=== PATIENT | male | born 1940 | race Caucasian/White ===

== ENCOUNTER 2017-09-21 13:18 | Emergency (ER) | payer MEDICARE, OTHER ==
[~2017-09-21] VITALS: Ht 170.2 cm; Wt 110.0 kg
[~2017-09-21 13:18] MED LIST: CILOSTAZOL100 MG PO; CILOSTAZOL50 MG PO; CLOPIDOGREL75 MG PO; COLESTID1 GM PO; CRESTOR20 MG PO; CYCLOBENZAPR10 MG PO; FLEXERIL PO; LASIX 20 MG20 MG/TAB PO; LASIX 40 MG TAB40 MG PO; LOSARTAN POT50 MG PO; METOPROL TAR25 MG PO; NORTRIPTYLIN10 MG PO; NORTRIPTYLIN25 MG PO; OMEPRAZOLE20 MG PO; POT CHLORIDE10 ME1 PO; PROAIR HFA IN; TERAZOSIN1 MG PO; TRAMADOL HCL50 MG PO; ULTRAM50 M1 PO; ZITHROMAX250 MG PO
[2017-09-21 14:11] LABS: HEMATOCRIT 40.6 % (39.0-50.0); HEMOGLOBIN 12.8 g/dl (14.0-18.0); IMMATURE GRANULOCYTES 0.2 % (0.0-1.0); MEAN CELL VOLUME 85.3 fL CALC (80.0-100.0); MEAN CORPUSCULAR HGB 26.9 pG CALC (26.0-32.0); MEAN CORPUSCULAR HGB CONC 31.5 g/L CALC (32.0-36.0); NEUT# 4.99 thou/uL (1.82-7.42); RED BLOOD COUNT 4.76 mill/uL (4.70-6.10); RED CELL DISTRI WIDTH 14.9 % (11.5-15.5)
[2017-09-21 14:22] LABS: ALKALINE PHOSPHATASE 97 u/l (38-126); ANION GAP 16 (6-22 (CALC)); BILIRUBIN, TOTAL 0.4 mg/dL (0.0-1.4); BUN 19 mg/dL (8-23); BUN/CREATININE RATIO 19 (12-20 (CALC)); CALCIUM 9.1 mg/dL (8.4-10.2); CARBON DIOXIDE 22 mmol/l (22-30); CHLORIDE 109 mmol/l (95-108); GFR > 60 ML/MIN (>=60 (CALC)); GFR FOR AFR.AMER. > 60 ML/MIN (>=60 (CALC)); GLUCOSE 99 mg/dL (82-115); POTASSIUM 3.7 mmol/l (3.5-5.1); SGOT/AST 24 u/l (19-48); SGPT/ALT 34 u/l (11-66); SODIUM 144 mmol/l (137-146); TOTAL PROTEIN 6.5 g/dL (6.3-8.2)
[2017-09-21 14:34] LABS: MYOGLOBIN 66 ng/mL (0 - 121)
[2017-09-21 16:11] VITALS: BP 109/74
== END 2017-09-21 16:12 | disposition home or self-care (01) ==
LOC: ED 13:18
PROVIDERS: Emergency Medicine
DX: M54.12 Radiculopathy, cervical region (principal); F41.9 Anxiety disorder, unspecified; R42 Dizziness and giddiness; R53.1 Weakness

== ENCOUNTER 2017-10-19 08:26 | Day surgery (SDC) | payer MEDICARE, OTHER ==
[~2017-10-19] VITALS: Ht 170.2 cm; Wt 109.3 kg
[~2017-10-19 08:26] MED LIST changes: +AREDS 2 PO; +DOCU SOFT100 MG PO; +GABAPENTIN300 M2 PO; +LINZESS145 MCG PO; +LOSARTAN POT25 MG PO; +NITROGLYCER0.4 MG/H1 PO; +PHENTERMINE37.5 MG PO; +ROSUVASTATIN CA20 MG PO
[2017-10-19 09:57] LABS: HEMATOCRIT 40.3 % (39.0-50.0); HEMOGLOBIN 12.6 g/dl (14.0-18.0); IMMATURE GRANULOCYTES 0.3 % (0.0-1.0); MEAN CELL VOLUME 84.8 fL CALC (80.0-100.0); MEAN CORPUSCULAR HGB 26.5 pG CALC (26.0-32.0); MEAN CORPUSCULAR HGB CONC 31.3 g/L CALC (32.0-36.0); NEUT# 4.1 thou/uL (1.82-7.42); RED BLOOD COUNT 4.75 mill/uL (4.70-6.10); RED CELL DISTRI WIDTH 14.9 % (11.5-15.5)
[2017-10-19 10:29] LABS: ANION GAP 15 (6-22 (CALC)); BUN 10 mg/dL (8-23); BUN/CREATININE RATIO 12 (12-20 (CALC)); CARBON DIOXIDE 24 mmol/l (22-30); CHLORIDE 108 mmol/l (95-108); CREATININE 0.8 mg/dL (0.7-1.3); GFR > 60 ML/MIN (>=60 (CALC)); GFR FOR AFR.AMER. > 60 ML/MIN (>=60 (CALC)); POTASSIUM 4.3 mmol/l (3.5-5.1); SODIUM 144 mmol/l (137-146)
[2017-10-19 11:22] VITALS: BP 126/66
== END 2017-10-19 11:50 | disposition home or self-care (01) ==
LOC: ENDO 08:26 → ORM 12:15
PROVIDERS: Nurse Anesthetist, Certified Registered; ATTEND Internal Medicine Gastroenterology
PROC: 0D758ZZ Dilation of Esophagus, Via Natural or Artificial Opening Endoscopic (ICD-10-PCS; principal; 2017-10-19)
PROC: 0DB48ZX Excision of Esophagogastric Junction, Via Natural or Artificial Opening Endoscopic, Diagnostic (ICD-10-PCS; 2017-10-19)
PROC: 0DB78ZX Excision of Stomach, Pylorus, Via Natural or Artificial Opening Endoscopic, Diagnostic (ICD-10-PCS; 2017-10-19)
PROC: 0DB68ZX Excision of Stomach, Via Natural or Artificial Opening Endoscopic, Diagnostic (ICD-10-PCS; 2017-10-19)
DX: K22.2 Esophageal obstruction (principal); K29.50 Unspecified chronic gastritis without bleeding; K44.9 Diaphragmatic hernia without obstruction or gangrene; Q40.8 Other specified congenital malformations of upper alimentary tract; K31.7 Polyp of stomach and duodenum; K20.9 Esophagitis, unspecified; I10 Essential (primary) hypertension; I25.10 Atherosclerotic heart disease of native coronary artery without angina pectoris; I25.2 Old myocardial infarction; I73.9 Peripheral vascular disease, unspecified; E78.00 Pure hypercholesterolemia, unspecified; E03.9 Hypothyroidism, unspecified; K57.90 Diverticulosis of intestine, part unspecified, without perforation or abscess without bleeding; K64.8 Other hemorrhoids; K59.00 Constipation, unspecified; Z95.5 Presence of coronary angioplasty implant and graft; Z95.1 Presence of aortocoronary bypass graft

== ENCOUNTER 2017-11-01 11:03 | Emergency (ER) | payer MEDICARE, OTHER ==
[~2017-11-01] VITALS: Ht 170.2 cm; Wt 110.0 kg
[2017-11-01 11:50] LABS: HEMOGLOBIN 14.3 g/dl (14.0-18.0); IMMATURE GRANULOCYTES 0.3 % (0.0-1.0); MEAN CELL VOLUME 84.3 fL CALC (80.0-100.0); MEAN CORPUSCULAR HGB CONC 30.9 g/L CALC (32.0-36.0); NEUT# 9.09 thou/uL (1.82-7.42); RED BLOOD COUNT 5.49 mill/uL (4.70-6.10); RED CELL DISTRI WIDTH 15.1 % (11.5-15.5)
[2017-11-01 11:57] LABS: HEMATOCRIT 46.3 % (39.0-50.0)
[2017-11-01 12:07] LABS: ALBUMIN 4.3 g/dL (3.2-5.0); ALKALINE PHOSPHATASE 108 u/l (38-126); ANION GAP 19 (6-22 (CALC)); BILIRUBIN, TOTAL 0.7 mg/dL (0.0-1.4); BUN 16 mg/dL (8-23); BUN/CREATININE RATIO 18 (12-20 (CALC)); CARBON DIOXIDE 22 mmol/l (22-30); CHLORIDE 107 mmol/l (95-108); CREATININE 0.9 mg/dL (0.7-1.3); GFR > 60 ML/MIN (>=60 (CALC)); GFR FOR AFR.AMER. > 60 ML/MIN (>=60 (CALC)); LIPASE 85 u/l (23-300); POTASSIUM 4.4 mmol/l (3.5-5.1); SGOT/AST 22 u/l (19-48); SGPT/ALT 29 u/l (11-66); SODIUM 144 mmol/l (137-146); TOTAL PROTEIN 6.8 g/dL (6.3-8.2)
[2017-11-01 13:17] LABS: URINE BILIRUBIN - DIPSTICK NEGATIVE (NEGATIVE); URINE BLOOD DIPSTICK NEGATIVE (NEGATIVE); URINE COLOR YELLOW; URINE GLUCOSE - DIPSTICK NEGATIVE (NEGATIVE); URINE KETONE 40 mg/dL (NEGATIVE); URINE LEUK ESTERASE NEGATIVE (NEGATIVE); URINE NITRITE - DIPSTICK NEGATIVE (Negative); URINE PROTEIN - DIPSTICK TRACE mg/dL (NEG-TRACE)
[2017-11-01 13:18] LABS: URINE CLARITY CLEAR
[2017-11-01] MEDS ORDERED: ONDANSETRON4 MG PO (13:21)
[2017-11-01 13:29] VITALS: BP 134/75
== END 2017-11-01 13:40 | disposition home or self-care (01) ==
LOC: ED 11:03
PROVIDERS: Family Medicine
DX: K52.9 Noninfective gastroenteritis and colitis, unspecified (principal); R11.2 Nausea with vomiting, unspecified; R50.9 Fever, unspecified; R10.32 Left lower quadrant pain; R10.12 Left upper quadrant pain

== ENCOUNTER 2018-08-30 06:57 | Day surgery (SDC) | payer MEDICARE, OTHER ==
[~2018-08-30] VITALS: Ht 170.2 cm; Wt 114.3 kg
[~2018-08-30 06:57] MED LIST changes: +ALDACTONE25 MG PO; +BUMETANIDE1 MG PO; +FINASTERIDE5 MG PO; +NITRO-DUR0.4 MG/HR TD; +ONDANSETRON4 MG PO; +PANTOPRAZOLE SO40 MG PO; +TAMSULOSIN HCL0.4 MG PO
[2018-08-30 09:26] VITALS: BP 119/62
== END 2018-08-30 09:00 | disposition home or self-care (01) ==
LOC: ENDO 06:57 → ORM 13:30 → ENDO 13:30
PROVIDERS: ATTEND Internal Medicine Gastroenterology
PROC: 0D758ZZ Dilation of Esophagus, Via Natural or Artificial Opening Endoscopic (ICD-10-PCS; principal; 2018-08-30)
PROC: 0DB48ZX Excision of Esophagogastric Junction, Via Natural or Artificial Opening Endoscopic, Diagnostic (ICD-10-PCS; 2018-08-30)
DX: K21.0 Gastro-esophageal reflux disease with esophagitis (principal); K22.2 Esophageal obstruction; K29.50 Unspecified chronic gastritis without bleeding; K22.4 Dyskinesia of esophagus; K22.8 Other specified diseases of esophagus; Q40.8 Other specified congenital malformations of upper alimentary tract; K44.9 Diaphragmatic hernia without obstruction or gangrene; K57.30 Diverticulosis of large intestine without perforation or abscess without bleeding; I10 Essential (primary) hypertension; I25.10 Atherosclerotic heart disease of native coronary artery without angina pectoris; I25.2 Old myocardial infarction; I73.9 Peripheral vascular disease, unspecified; Z95.1 Presence of aortocoronary bypass graft; Z95.5 Presence of coronary angioplasty implant and graft; Z86.010 Personal history of colon polyps

== ENCOUNTER → 2018-10-25 | Outpatient (REF) | payer MEDICARE, OTHER ==
[2018-10-25 08:10] LABS: HEMATOCRIT 47.4 % (39.0-50.0); HEMOGLOBIN 15.1 g/dl (14.0-18.0); MEAN CELL VOLUME 88.6 fL CALC (80.0-100.0); MEAN CORPUSCULAR HGB 28.2 pG CALC (26.0-32.0); MEAN CORPUSCULAR HGB CONC 31.9 g/L CALC (32.0-36.0); RED BLOOD COUNT 5.35 mill/uL (4.70-6.10); RED CELL DISTRI WIDTH 15.8 % (11.5-15.5)
[2018-10-25 09:03] LABS: ALBUMIN 3.9 g/dL (3.2-5.0); ALKALINE PHOSPHATASE 98 u/l (38-126); ANION GAP 16 (6-22 (CALC)); BILIRUBIN, TOTAL 0.6 mg/dL (0.0-1.4); BUN 18 mg/dL (8-23); BUN/CREATININE RATIO 19 (12-20 (CALC)); CALCULATED LDLCHOLESTEROL 88 mg/dL (62-129 (CALC)); CARBON DIOXIDE 26 mmol/l (22-30); CHLORIDE 100 mmol/l (95-108); CHOLESTEROL HDL RATIO 4.6 (<4.4 (CALC)); GFR > 60 ML/MIN (>=60 (CALC)); GFR FOR AFR.AMER. > 60 ML/MIN (>=60 (CALC)); HDL CHOLESTEROL 34 mg/dL (>=40); POTASSIUM 4.3 mmol/l (3.5-5.1); SGOT/AST 17 u/l (19-48); SODIUM 138 mmol/l (137-146); TOTAL CHOLESTEROL 158 mg/dl (0-199); TOTAL PROTEIN 6.4 g/dL (6.3-8.2); TOTAL TRIGLYCERIDES 180 mg/dl (30-149); VLDL CHOLESTROL 36 mg/dl (0-38 (CALC))
== END | disposition home or self-care (01) ==
LOC: LAB 07:10
PROVIDERS: ATTEND Internal Medicine
DX: E11.9 Type 2 diabetes mellitus without complications (principal); I10 Essential (primary) hypertension; I50.22 Chronic systolic (congestive) heart failure; M48.00 Spinal stenosis, site unspecified; Z85.46 Personal history of malignant neoplasm of prostate

== ENCOUNTER 2019-05-30 08:28 | Day surgery (SDC) | payer MEDICARE, OTHER ==
[~2019-05-30] VITALS: Ht 170.2 cm; Wt 112.0 kg
[~2019-05-30 08:28] MED LIST changes: +ALOGLIPTIN PO
[2019-05-30 10:15] VITALS: BP 126/74
== END 2019-05-30 10:26 | disposition home or self-care (01) ==
LOC: ORM 08:28
PROVIDERS: ATTEND Internal Medicine Gastroenterology
PROC: 0D758ZZ Dilation of Esophagus, Via Natural or Artificial Opening Endoscopic (ICD-10-PCS; principal; 2019-05-30)
PROC: 0DB48ZX Excision of Esophagogastric Junction, Via Natural or Artificial Opening Endoscopic, Diagnostic (ICD-10-PCS; 2019-05-30)
PROC: 0DB58ZX Excision of Esophagus, Via Natural or Artificial Opening Endoscopic, Diagnostic (ICD-10-PCS; 2019-05-30)
DX: K22.8 Other specified diseases of esophagus (principal); Q39.8 Other congenital malformations of esophagus; Q40.8 Other specified congenital malformations of upper alimentary tract; K29.70 Gastritis, unspecified, without bleeding; K21.0 Gastro-esophageal reflux disease with esophagitis; I10 Essential (primary) hypertension; I25.10 Atherosclerotic heart disease of native coronary artery without angina pectoris; I25.2 Old myocardial infarction; E03.9 Hypothyroidism, unspecified; I73.9 Peripheral vascular disease, unspecified; Z95.5 Presence of coronary angioplasty implant and graft; Z95.1 Presence of aortocoronary bypass graft

== ENCOUNTER 2019-05-30 17:19 | Emergency (ER) | payer MEDICARE, OTHER ==
[~2019-05-30] VITALS: Ht 170.2 cm; Wt 125.0 kg
[2019-05-30 18:36] VITALS: BP 146/70
== END 2019-05-30 18:56 | disposition home or self-care (01) ==
LOC: ED 17:19
DX: S70.01XA Contusion of right hip, initial encounter (principal); I10 Essential (primary) hypertension; I25.10 Atherosclerotic heart disease of native coronary artery without angina pectoris; I25.2 Old myocardial infarction; W01.0XXA Fall on same level from slipping, tripping and stumbling without subsequent striking against object, initial encounter; Y92.009 Unspecified place in unspecified non-institutional (private) residence as the place of occurrence of the external cause; Z95.1 Presence of aortocoronary bypass graft; Z95.5 Presence of coronary angioplasty implant and graft

== ENCOUNTER 2019-08-10 19:06 | Observation (INO) | payer MEDICARE, OTHER ==
[~2019-08-10] VITALS: Ht 170.2 cm; Wt 115.0 kg
[2019-08-10 19:54] LABS: HEMATOCRIT 47.9 % (39.0-50.0); HEMOGLOBIN 15.3 g/dl (14.0-18.0); IMMATURE GRANULOCYTES 0.3 % (0.0-5.0); MEAN CELL VOLUME 88.4 fL CALC (80.0-100.0); MEAN CORPUSCULAR HGB 28.2 pG CALC (26.0-32.0); MEAN CORPUSCULAR HGB CONC 31.9 g/L CALC (32.0-36.0); NEUT# 8.28 thou/uL (1.82-7.42); RED BLOOD COUNT 5.42 mill/uL (4.70-6.10); RED CELL DISTRI WIDTH 15.5 % (11.5-15.5)
[2019-08-10 20:03] LABS: ALBUMIN 4.3 g/dL (3.2-5.0); ALKALINE PHOSPHATASE 93 u/l (38-126); ANION GAP 15 (6-22 (CALC)); BILIRUBIN, TOTAL 0.6 mg/dL (0.0-1.4); BUN 15 mg/dL (8-23); BUN/CREATININE RATIO 17 (12-20 (CALC)); CARBON DIOXIDE 26 mmol/l (22-30); CHLORIDE 102 mmol/l (95-108); CREATININE 0.9 mg/dL (0.7-1.3); GFR > 60 ML/MIN (>=60 (CALC)); GFR FOR AFR.AMER. > 60 ML/MIN (>=60 (CALC)); SGOT/AST 21 u/l (19-48); SODIUM 139 mmol/l (137-146); TOTAL PROTEIN 7.5 g/dL (6.3-8.2)
[2019-08-10 20:10] LABS: ACT PARTIAL THROMBO TIME 26.8 SECONDS (20.0-32.5); PROTHROMBIN TIME 10.8 SECONDS (9.0-12.5)
[2019-08-10 20:15] LABS: MYOGLOBIN 76 ng/mL (0 - 121)
[2019-08-10 20:35] LABS: URINE BILIRUBIN - DIPSTICK NEGATIVE (NEGATIVE); URINE COLOR YELLOW; URINE GLUCOSE - DIPSTICK NEGATIVE (NEGATIVE); URINE KETONE Negative (NEGATIVE); URINE SPECIFIC GRAVITY 1.025
[2019-08-10 20:36] LABS: URINE BLOOD DIPSTICK NEGATIVE (NEGATIVE); URINE LEUK ESTERASE NEGATIVE (NEGATIVE); URINE PROTEIN - DIPSTICK 30 mg/dL (NEG-TRACE)
[2019-08-10 20:39] LABS: URINE NITRITE - DIPSTICK NEGATIVE (Negative)
[2019-08-10 20:40] LABS: URINE EPITHELIAL CELLS FEW EPI/hpf (0-FEW); URINE MUCUS FEW hpf (NONE-FEW)
[2019-08-11 01:45] VITALS: BP 155/79
[2019-08-11 04:26] VITALS: BP 118/70
[2019-08-11 07:40] VITALS: BP 129/75
[2019-08-11 12:31] VITALS: BP 137/71
[2019-08-11 15:10] VITALS: BP 126/67
[2019-08-11] MEDS ORDERED: FLEXERIL PO (16:01)
[2019-08-11] MEDS ORDERED: NITROGLYCER0.4 MG SL (16:13)
[2019-08-11] MEDS ORDERED: LEVAQUIN750 MG PO (21:30)
== END 2019-08-11 17:10 | disposition home or self-care (01) ==
LOC: ED 19:06 → ED-I 08-11 00:13 → ED 08-11 00:30 → MS2 08-11 00:31
PROVIDERS: Emergency Medicine; ADMIT Internal Medicine; ATTEND Internal Medicine
DX: J18.9 Pneumonia, unspecified organism (principal); J44.0 Chronic obstructive pulmonary disease with (acute) lower respiratory infection; I11.0 Hypertensive heart disease with heart failure; I50.9 Heart failure, unspecified; E11.51 Type 2 diabetes mellitus with diabetic peripheral angiopathy without gangrene; I25.10 Atherosclerotic heart disease of native coronary artery without angina pectoris; G47.33 Obstructive sleep apnea (adult) (pediatric); I25.2 Old myocardial infarction; Z95.1 Presence of aortocoronary bypass graft; Z95.5 Presence of coronary angioplasty implant and graft; R06.02 Shortness of breath; R07.89 Other chest pain
CPT/HCPCS: G0378

== ENCOUNTER 2020-09-09 15:16 | Inpatient (IN) | payer MEDICARE, OTHER ==
[~2020-09-09] VITALS: Ht 170.2 cm; Wt 120.0 kg
[~2020-09-09 15:16] MED LIST changes: +ALOGLIPTIN25 MG PO; +B-121000 MC1 PO; +D3 DOTS2000 UNIT PO; +LEVAQUIN750 MG PO; +MECLIZINE25 MG PO; +NITROGLYCER0.4 MG SL
[2020-09-09 16:42] LABS: HEMATOCRIT 51.5 % (39.0-50.0); HEMOGLOBIN 16.5 g/dl (14.0-18.0); IMMATURE GRANULOCYTES 0.6 % (0.0-5.0); MEAN CELL VOLUME 95.2 fL CALC (80.0-100.0); MEAN CORPUSCULAR HGB 30.5 pG CALC (26.0-32.0); NEUT# 5.3 thou/uL (1.82-7.42); RED BLOOD COUNT 5.41 mill/uL (4.70-6.10); RED CELL DISTRI WIDTH 14.5 % (11.5-15.5)
[2020-09-09] MEDS ORDERED: ISOSORB MONO30 MG PO (16:59)
[2020-09-09] MEDS ORDERED: NORTRIPTYLIN25 MG PO (17:00)
[2020-09-09] MEDS ORDERED: ALOGLIPTIN6.25 MG PO (17:01)
[2020-09-09 17:05] LABS: ALBUMIN 4.2 g/dL (3.2-5.0); ALKALINE PHOSPHATASE 72 u/l (38-126); BILIRUBIN, TOTAL 0.7 mg/dL (0.0-1.4); BUN 14 mg/dL (8-23); BUN/CREATININE RATIO 13 (12-20 (CALC)); CHLORIDE 100 mmol/l (95-108); CREATININE 1.1 mg/dL (0.7-1.3); GFR > 60 ML/MIN (>=60 (CALC)); GFR FOR AFR.AMER. > 60 ML/MIN (>=60 (CALC)); LIPASE 142 u/l (23-300); MAGNESIUM 1.7 mg/dL (1.6-2.3); POTASSIUM 3.8 mmol/l (3.5-5.1); SODIUM 138 mmol/l (137-146); TOTAL PROTEIN 7.6 g/dL (6.3-8.2)
[2020-09-09 17:09] LABS: ANION GAP 18 (6-22 (CALC)); CARBON DIOXIDE 24 mmol/l (22-30); SGOT/AST 49 u/l (19-48)
[2020-09-09 19:16] LABS: URINE BILIRUBIN - DIPSTICK NEGATIVE (NEGATIVE); URINE BLOOD DIPSTICK TRACE-INTACT (NEGATIVE); URINE COLOR YELLOW; URINE GLUCOSE - DIPSTICK NEGATIVE (NEGATIVE); URINE KETONE TRACE mg/dL (NEGATIVE); URINE LEUK ESTERASE NEGATIVE (NEGATIVE); URINE NITRITE - DIPSTICK NEGATIVE (Negative); URINE PROTEIN - DIPSTICK 100 mg/dL (NEG-TRACE); URINE SPECIFIC GRAVITY 1.025
[2020-09-09 19:29] LABS: URINE RBC 0-2 RBC/hpf (0-5); URINE WBC 0-2 WBC/hpf (0-5)
[2020-09-09 23:40] VITALS: BP 99/48
[2020-09-10 04:00] VITALS: BP 121/67
[2020-09-10 05:26] LABS: HEMATOCRIT 46.6 % (39.0-50.0); MEAN CELL VOLUME 94.1 fL CALC (80.0-100.0); MEAN CORPUSCULAR HGB 30.3 pG CALC (26.0-32.0); MEAN CORPUSCULAR HGB CONC 32.2 g/dL CAL (32.0-36.0); NEUT# 9.78 thou/uL (1.82-7.42); RED BLOOD COUNT 4.95 mill/uL (4.70-6.10); RED CELL DISTRI WIDTH 14.3 % (11.5-15.5)
[2020-09-10 06:01] LABS: ALKALINE PHOSPHATASE 58 u/l (38-126); ANION GAP 11 (6-22 (CALC)); BILIRUBIN, TOTAL 0.6 mg/dL (0.0-1.4); BUN 17 mg/dL (8-23); BUN/CREATININE RATIO 18 (12-20 (CALC)); C-REACTIVE PROTEIN 6.3 mg/dL (0-0.9); CARBON DIOXIDE 28 mmol/l (22-30); CHLORIDE 103 mmol/l (95-108); CREATININE 0.9 mg/dL (0.7-1.3); GFR > 60 ML/MIN (>=60 (CALC)); GFR FOR AFR.AMER. > 60 ML/MIN (>=60 (CALC)); POTASSIUM 3.7 mmol/l (3.5-5.1); SGOT/AST 31 u/l (19-48); SODIUM 138 mmol/l (137-146)
[2020-09-10 06:03] LABS: ALBUMIN 3.1 g/dL (3.2-5.0); TOTAL PROTEIN 5.6 g/dL (6.3-8.2)
[2020-09-10 07:30] VITALS: BP 122/67
[2020-09-10 11:00] VITALS: BP 122/65
[2020-09-10 15:14] VITALS: BP 119/61
[2020-09-10 19:40] VITALS: BP 169/72
[2020-09-10] MEDS ORDERED: VISION FORMULA PO (21:41)
[2020-09-10 23:45] VITALS: BP 126/71
[2020-09-11 04:30] VITALS: BP 141/78
[2020-09-11 07:30] VITALS: BP 107/71
[2020-09-11 10:30] VITALS: BP 111/66
[2020-09-11 15:00] VITALS: BP 106/64
[2020-09-11 20:00] VITALS: BP 123/65
[2020-09-12 00:15] VITALS: BP 104/71
[2020-09-12 03:55] VITALS: BP 136/67
[2020-09-12 07:39] VITALS: BP 105/67
[2020-09-12 11:30] VITALS: BP 103/52
[2020-09-12 16:00] VITALS: BP 117/62
[2020-09-12 19:00] VITALS: BP 116/65
[2020-09-13] VITALS: BP 139/68
[2020-09-13 04:00] VITALS: BP 126/65
[2020-09-13 05:36] LABS: HEMATOCRIT 48.2 % (39.0-50.0); HEMOGLOBIN 15.7 g/dl (14.0-18.0); IMMATURE GRANULOCYTES 0.5 % (0.0-5.0); MEAN CELL VOLUME 92.3 fL CALC (80.0-100.0); MEAN CORPUSCULAR HGB 30.1 pG CALC (26.0-32.0); MEAN CORPUSCULAR HGB CONC 32.6 g/dL CAL (32.0-36.0); NEUT# 3.84 thou/uL (1.82-7.42); RED BLOOD COUNT 5.22 mill/uL (4.70-6.10)
[2020-09-13 05:52] LABS: ALBUMIN 3.2 g/dL (3.2-5.0); ALKALINE PHOSPHATASE 56 u/l (38-126); ANION GAP 11 (6-22 (CALC)); BILIRUBIN, TOTAL 0.6 mg/dL (0.0-1.4); BUN 17 mg/dL (8-23); BUN/CREATININE RATIO 23 (12-20 (CALC)); C-REACTIVE PROTEIN 1.6 mg/dL (0-0.9); CARBON DIOXIDE 28 mmol/l (22-30); CHLORIDE 105 mmol/l (95-108); CREATININE 0.7 mg/dL (0.7-1.3); GFR > 60 ML/MIN (>=60 (CALC)); GFR FOR AFR.AMER. > 60 ML/MIN (>=60 (CALC)); POTASSIUM 3.6 mmol/l (3.5-5.1); SGOT/AST 33 u/l (19-48); SODIUM 140 mmol/l (137-146); TOTAL PROTEIN 5.6 g/dL (6.3-8.2)
[2020-09-13 08:42] VITALS: BP 106/74
[2020-09-13 11:00] VITALS: BP 136/72
[2020-09-13 15:00] VITALS: BP 111/55
[2020-09-13 19:00] VITALS: BP 131/71
[2020-09-14] VITALS: BP 116/60
[2020-09-14 04:00] VITALS: BP 141/69
[2020-09-14 08:11] VITALS: BP 152/86
[2020-09-14] MEDS ORDERED: ZITHROMAX500 MG PO (10:55)
[2020-09-14] MEDS ORDERED: DEXAMETHASON6 MG PO (10:55)
[2020-09-14 11:37] VITALS: BP 118/69
[2020-09-14 16:00] VITALS: BP 116/74
== END 2020-09-14 17:32 | disposition home or self-care (01) | DRG 177 ==
LOC: ED 15:16 → ED-I 19:54 → ED 20:13 → MS2 20:14
PROVIDERS: Family Medicine; Nurse Practitioner; ADMIT Internal Medicine; ATTEND Internal Medicine
PROC: XW033E5 Introduction of Remdesivir Anti-infective into Peripheral Vein, Percutaneous Approach, New Technology Group 5 (ICD-10-PCS; principal; 2020-09-10)
DX: U07.1 COVID-19 (principal); J12.82 Pneumonia due to coronavirus disease 2019; J96.01 Acute respiratory failure with hypoxia; I25.10 Atherosclerotic heart disease of native coronary artery without angina pectoris; I11.0 Hypertensive heart disease with heart failure; I50.9 Heart failure, unspecified; E11.9 Type 2 diabetes mellitus without complications; J43.9 Emphysema, unspecified; G47.33 Obstructive sleep apnea (adult) (pediatric); E78.5 Hyperlipidemia, unspecified; N40.0 Benign prostatic hyperplasia without lower urinary tract symptoms; M48.00 Spinal stenosis, site unspecified; Z99.81 Dependence on supplemental oxygen; Z79.01 Long term (current) use of anticoagulants; Z79.899 Other long term (current) drug therapy; Z88.0 Allergy status to penicillin; Z88.2 Allergy status to sulfonamides; Z88.6 Allergy status to analgesic agent; Z91.041 Radiographic dye allergy status; Z88.8 Allergy status to other drugs, medicaments and biological substances; Z95.1 Presence of aortocoronary bypass graft; Z95.5 Presence of coronary angioplasty implant and graft; Z85.46 Personal history of malignant neoplasm of prostate; Z87.891 Personal history of nicotine dependence
CPT/HCPCS: G0378; J1650

== ENCOUNTER 2021-01-14 10:14 | Emergency (ER) | payer OTHER, MEDICARE ==
[~2021-01-14] VITALS: Ht 170.2 cm; Wt 95.0 kg
[~2021-01-14 10:14] MED LIST changes: +ALOGLIPTIN6.25 MG PO; +DEXAMETHASON6 MG PO; +ISOSORB MONO30 MG PO; +VISION FORMULA PO; +ZITHROMAX500 MG PO
[2021-01-14 10:47] LABS: GFR > 60 ML/MIN (>=60 (CALC)); GFR FOR AFR.AMER. > 60 ML/MIN (>=60 (CALC))
[2021-01-14 11:01] LABS: HEMOGLOBIN 16.3 g/dl (14.0-18.0); IMMATURE GRANULOCYTES 0.3 % (0.0-5.0); MEAN CELL VOLUME 93.1 fL CALC (80.0-100.0); MEAN CORPUSCULAR HGB 30.4 pG CALC (26.0-32.0); MEAN CORPUSCULAR HGB CONC 32.6 g/dL CAL (32.0-36.0); NEUT# 4.53 thou/uL (1.82-7.42); RED BLOOD COUNT 5.37 mill/uL (4.70-6.10); RED CELL DISTRI WIDTH 13.8 % (11.5-15.5)
[2021-01-14 11:12] LABS: INTERNATIONAL NORMALIZED RATIO 1.1 RATIO (0.7-1.3); PROTHROMBIN TIME 11.3 SECONDS (9.0-12.5)
[2021-01-14 12:02] VITALS: BP 168/72
[2021-01-14 12:41] LABS: ALKALINE PHOSPHATASE 86 u/l (38-126); ANION GAP 12 (6-22 (CALC)); BILIRUBIN, TOTAL 0.5 mg/dL (0.0-1.4); BUN 12 mg/dL (8-23); BUN/CREATININE RATIO 13 (12-20 (CALC)); CARBON DIOXIDE 28 mmol/l (22-30); CHLORIDE 102 mmol/l (95-108); CREATININE 0.9 mg/dL (0.7-1.3); GFR > 60 ML/MIN (>=60 (CALC)); GFR FOR AFR.AMER. > 60 ML/MIN (>=60 (CALC)); POTASSIUM 3.7 mmol/l (3.5-5.1); SGOT/AST 28 u/l (19-48); SODIUM 139 mmol/l (137-146); TOTAL PROTEIN 7.3 g/dL (6.3-8.2)
[2021-01-14 13:18] LABS: URINE BILIRUBIN - DIPSTICK NEGATIVE (NEGATIVE); URINE BLOOD DIPSTICK NEGATIVE (NEGATIVE); URINE COLOR YELLOW; URINE GLUCOSE - DIPSTICK NEGATIVE (NEGATIVE); URINE KETONE NEGATIVE (NEGATIVE); URINE LEUK ESTERASE NEGATIVE (NEGATIVE); URINE PROTEIN - DIPSTICK NEGATIVE (NEG-TRACE); URINE SPECIFIC GRAVITY 1.015; URINE UROBILINOGEN - DIPSTICK 0.2 E.U./dL (0.2)
[2021-01-14] MEDS ORDERED: ZITHROMAX250 MG PO (13:25)
[2021-01-14 13:28] LABS: URINE NITRITE - DIPSTICK NEGATIVE (Negative)
== END 2021-01-14 13:53 | disposition home or self-care (01) | DRG 149 ==
LOC: ED 10:14
PROVIDERS: Emergency Medicine
DX: R42 Dizziness and giddiness (principal); J18.9 Pneumonia, unspecified organism; E11.9 Type 2 diabetes mellitus without complications; I25.10 Atherosclerotic heart disease of native coronary artery without angina pectoris; E78.5 Hyperlipidemia, unspecified; Z95.5 Presence of coronary angioplasty implant and graft; Z95.1 Presence of aortocoronary bypass graft; Z95.820 Peripheral vascular angioplasty status with implants and grafts
CPT/HCPCS: Q9967

== ENCOUNTER 2021-12-15 14:29 | Emergency (ER) | payer OTHER, MEDICARE ==
[~2021-12-15] VITALS: Ht 170.2 cm; Wt 108.0 kg
[2021-12-15] VITALS (11 sets, daily range): BP systolic 102–134; BP diastolic 44–76
[2021-12-15 15:01] LABS: HEMATOCRIT 49.5 % (39.0-50.0); HEMOGLOBIN 16.7 g/dl (14.0-18.0); IMMATURE GRANULOCYTES 0.1 % (0.0-5.0); MEAN CELL VOLUME 94.3 fL CALC (80.0-100.0); MEAN CORPUSCULAR HGB 31.8 pG CALC (26.0-32.0); MEAN CORPUSCULAR HGB CONC 33.7 g/dL CAL (32.0-36.0); NEUT# 5.06 thou/uL (1.82-7.42); RED BLOOD COUNT 5.25 mill/uL (4.70-6.10); RED CELL DISTRI WIDTH 13.3 % (11.5-15.5)
[2021-12-15 15:12] LABS: ALBUMIN 3.9 g/dL (3.2-5.0); ALKALINE PHOSPHATASE 96 u/l (38-126); ANION GAP 12 (6-22 (CALC)); BILIRUBIN, TOTAL 0.7 mg/dL (0.0-1.4); BUN 14 mg/dL (8-23); BUN/CREATININE RATIO 14 (12-20 (CALC)); CARBON DIOXIDE 24 mmol/l (22-30); CHLORIDE 105 mmol/l (95-108); GFR > 60 ML/MIN (>=60 (CALC)); GFR FOR AFR.AMER. > 60 ML/MIN (>=60 (CALC)); LIPASE 74 u/l (23-300); MAGNESIUM 1.8 mg/dL (1.6-2.3); POTASSIUM 3.3 mmol/l (3.5-5.1); SGOT/AST 27 u/l (19-48); SODIUM 138 mmol/l (137-146)
[2021-12-15 15:19] LABS: ACT PARTIAL THROMBO TIME 24.9 SECONDS (20.0-32.5); INTERNATIONAL NORMALIZED RATIO 1.1 RATIO (0.7-1.3)
[2021-12-15] MEDS ORDERED: MIRALAX17 GM (15:22)
[2021-12-15] MEDS ORDERED: METOPROL TAR25 M1 PO (15:27)
[2021-12-15] MEDS ORDERED: NESINA6.25 MG PO (15:28)
[2021-12-15] MEDS ORDERED: OXYBUTYNIN CHLOR5 M1 PO (15:33)
== END 2021-12-15 17:09 | disposition short-term general hospital (02) | DRG 313 ==
LOC: ED 14:29
DX: R07.9 Chest pain, unspecified (principal); I48.91 Unspecified atrial fibrillation; I11.0 Hypertensive heart disease with heart failure; I50.9 Heart failure, unspecified; E11.9 Type 2 diabetes mellitus without complications; Z95.1 Presence of aortocoronary bypass graft; Z95.5 Presence of coronary angioplasty implant and graft; Z95.820 Peripheral vascular angioplasty status with implants and grafts

== ENCOUNTER 2022-08-02 10:59 | Inpatient (IN) | payer MEDICARE, OTHER ==
[2022-08-02] VITALS (27 sets, daily range): BP systolic 78–146; BP diastolic 35–102
[~2022-08-02] VITALS: Ht 170.2 cm; Wt 108.8 kg
[~2022-08-02 10:59] MED LIST changes: +METOPROL TAR25 M1 PO; +MIRALAX17 GM; +NESINA6.25 MG PO; +OXYBUTYNIN CHLOR5 M1 PO
[2022-08-02 11:36] LABS: HEMATOCRIT 46.4 % (39.0-50.0); HEMOGLOBIN 14.6 g/dl (14.0-18.0); IMMATURE GRANULOCYTES 0.3 % (0.0-5.0); MEAN CORPUSCULAR HGB 31.5 pG CALC (26.0-32.0); MEAN CORPUSCULAR HGB CONC 31.5 g/dL CAL (32.0-36.0); NEUT# 6.36 thou/uL (1.82-7.42); RED BLOOD COUNT 4.64 mill/uL (4.70-6.10); RED CELL DISTRI WIDTH 14.7 % (11.5-15.5)
[2022-08-02 11:52] LABS: BILIRUBIN, TOTAL 0.9 mg/dL (0.0-1.4); CREATININE 1.7 mg/dL (0.7-1.3); POTASSIUM 4.4 mmol/l (3.5-5.1); TOTAL PROTEIN 7.1 g/dL (6.3-8.2)
[2022-08-02 12:52] LABS: URINE BILIRUBIN - DIPSTICK NEGATIVE (NEGATIVE); URINE BLOOD DIPSTICK SMALL (NEGATIVE); URINE COLOR YELLOW; URINE GLUCOSE - DIPSTICK NEGATIVE (NEGATIVE); URINE KETONE NEGATIVE (NEGATIVE); URINE LEUK ESTERASE NEGATIVE (NEGATIVE); URINE NITRITE - DIPSTICK NEGATIVE (Negative); URINE PROTEIN - DIPSTICK NEGATIVE (NEG-TRACE); URINE SPECIFIC GRAVITY 1.015
[2022-08-02 13:04] LABS: URINE HYALINE CAST FEW lpf (NONE-RARE)
[2022-08-02] MEDS ORDERED: FLECAINIDE50 MG PO (14:15)
[2022-08-02] MEDS ORDERED: ELIQUIS5 MG PO (14:17)
[2022-08-02] MEDS ORDERED: LEVOTHYROXIN50 MCG PO (16:37)
[2022-08-02] MEDS ORDERED: SOLIFENACIN SUC10 MG PO (16:38)
[2022-08-03] VITALS (47 sets, daily range): BP systolic 88–152; BP diastolic 41–69
[2022-08-03 04:03] LABS: HEMATOCRIT 44.6 % (39.0-50.0); HEMOGLOBIN 14.4 g/dl (14.0-18.0); MEAN CELL VOLUME 98.2 fL CALC (80.0-100.0); MEAN CORPUSCULAR HGB 31.7 pG CALC (26.0-32.0); MEAN CORPUSCULAR HGB CONC 32.3 g/dL CAL (32.0-36.0); RED BLOOD COUNT 4.54 mill/uL (4.70-6.10); RED CELL DISTRI WIDTH 14.4 % (11.5-15.5)
[2022-08-03 04:18] LABS: ALBUMIN 3.6 g/dL (3.2-5.0); ALKALINE PHOSPHATASE 114 u/l (38-126); ANION GAP 13 (6-22 (CALC)); BUN 24 mg/dL (8-23); BUN/CREATININE RATIO 19 (12-20 (CALC)); CARBON DIOXIDE 30 mmol/l (22-30); CHLORIDE 108 mmol/l (95-108); CREATININE 1.2 mg/dL (0.7-1.3); GFR FOR AFR.AMER. > 60 ML/MIN (>=60 (CALC)); GFR OTHER RACES 58 ML/MIN (>=60 (CALC)); MAGNESIUM 1.9 mg/dL (1.6-2.3); POTASSIUM 3.7 mmol/l (3.5-5.1); SGOT/AST 56 u/l (19-48); SODIUM 146 mmol/l (137-146); TOTAL PROTEIN 6.6 g/dL (6.3-8.2)
[2022-08-04] VITALS (21 sets, daily range): BP systolic 95–161; BP diastolic 36–131
[2022-08-04 05:54] LABS: HEMATOCRIT 41.7 % (39.0-50.0); HEMOGLOBIN 13.4 g/dl (14.0-18.0); MEAN CELL VOLUME 99.8 fL CALC (80.0-100.0); MEAN CORPUSCULAR HGB 32.1 pG CALC (26.0-32.0); MEAN CORPUSCULAR HGB CONC 32.1 g/dL CAL (32.0-36.0); RED BLOOD COUNT 4.18 mill/uL (4.70-6.10); RED CELL DISTRI WIDTH 14.5 % (11.5-15.5)
[2022-08-04 06:40] LABS: ALBUMIN 2.9 g/dL (3.2-5.0); ALKALINE PHOSPHATASE 93 u/l (38-126); ANION GAP 9 (6-22 (CALC)); BILIRUBIN, TOTAL 0.9 mg/dL (0.0-1.4); BUN 16 mg/dL (8-23); BUN/CREATININE RATIO 17 (12-20 (CALC)); CARBON DIOXIDE 30 mmol/l (22-30); CHLORIDE 109 mmol/l (95-108); GFR FOR AFR.AMER. > 60 ML/MIN (>=60 (CALC)); GFR OTHER RACES > 60 ML/MIN (>=60 (CALC)); MAGNESIUM 2.2 mg/dL (1.6-2.3); POTASSIUM 3.4 mmol/l (3.5-5.1); SGOT/AST 41 u/l (19-48); SODIUM 144 mmol/l (137-146); TOTAL PROTEIN 5.4 g/dL (6.3-8.2)
[2022-08-05] VITALS (27 sets, daily range): BP systolic 83–166; BP diastolic 39–141
[2022-08-05 05:43] LABS: HEMATOCRIT 41.9 % (39.0-50.0); HEMOGLOBIN 13.5 g/dl (14.0-18.0); MEAN CELL VOLUME 98.1 fL CALC (80.0-100.0); MEAN CORPUSCULAR HGB 31.6 pG CALC (26.0-32.0); MEAN CORPUSCULAR HGB CONC 32.2 g/dL CAL (32.0-36.0); RED BLOOD COUNT 4.27 mill/uL (4.70-6.10); RED CELL DISTRI WIDTH 14.3 % (11.5-15.5)
[2022-08-05 06:22] LABS: ANION GAP 9 (6-22 (CALC)); BUN 14 mg/dL (8-23); BUN/CREATININE RATIO 15 (12-20 (CALC)); CARBON DIOXIDE 28 mmol/l (22-30); CHLORIDE 109 mmol/l (95-108); CREATININE 0.9 mg/dL (0.7-1.3); GFR FOR AFR.AMER. > 60 ML/MIN (>=60 (CALC)); GFR OTHER RACES > 60 ML/MIN (>=60 (CALC)); MAGNESIUM 2.1 mg/dL (1.6-2.3); POTASSIUM 3.5 mmol/l (3.5-5.1); SODIUM 143 mmol/l (137-146)
[2022-08-06] VITALS (18 sets, daily range): BP systolic 100–163; BP diastolic 56–92
[2022-08-06 06:32] LABS: HEMATOCRIT 42.2 % (39.0-50.0); HEMOGLOBIN 13.9 g/dl (14.0-18.0); IMMATURE GRANULOCYTES 0.1 % (0.0-5.0); MEAN CELL VOLUME 96.1 fL CALC (80.0-100.0); MEAN CORPUSCULAR HGB 31.7 pG CALC (26.0-32.0); MEAN CORPUSCULAR HGB CONC 32.9 g/dL CAL (32.0-36.0); NEUT# 4.52 thou/uL (1.82-7.42); RED BLOOD COUNT 4.39 mill/uL (4.70-6.10); RED CELL DISTRI WIDTH 14.1 % (11.5-15.5)
[2022-08-06 07:28] LABS: ALBUMIN 3.1 g/dL (3.2-5.0); ALKALINE PHOSPHATASE 101 u/l (38-126); ANION GAP 10 (6-22 (CALC)); BILIRUBIN, TOTAL 0.8 mg/dL (0.0-1.4); BUN 14 mg/dL (8-23); BUN/CREATININE RATIO 15 (12-20 (CALC)); CARBON DIOXIDE 27 mmol/l (22-30); CHLORIDE 109 mmol/l (95-108); CREATININE 0.9 mg/dL (0.7-1.3); GFR FOR AFR.AMER. > 60 ML/MIN (>=60 (CALC)); GFR OTHER RACES > 60 ML/MIN (>=60 (CALC)); POTASSIUM 3.4 mmol/l (3.5-5.1); SODIUM 143 mmol/l (137-146); TOTAL PROTEIN 5.7 g/dL (6.3-8.2)
[2022-08-06 07:29] LABS: SGOT/AST 86 u/l (19-48)
[2022-08-07 04:33] VITALS: BP 147/47
[2022-08-07 05:15] LABS: HEMATOCRIT 45.5 % (39.0-50.0); IMMATURE GRANULOCYTES 0.4 % (0.0-5.0); MEAN CELL VOLUME 96.8 fL CALC (80.0-100.0); MEAN CORPUSCULAR HGB 31.9 pG CALC (26.0-32.0); NEUT# 5.55 thou/uL (1.82-7.42); RED BLOOD COUNT 4.7 mill/uL (4.70-6.10); RED CELL DISTRI WIDTH 14.3 % (11.5-15.5)
[2022-08-07 05:30] LABS: ANION GAP 13 (6-22 (CALC)); BUN 15 mg/dL (8-23); BUN/CREATININE RATIO 15 (12-20 (CALC)); CARBON DIOXIDE 26 mmol/l (22-30); CHLORIDE 108 mmol/l (95-108); GFR FOR AFR.AMER. > 60 ML/MIN (>=60 (CALC)); GFR OTHER RACES > 60 ML/MIN (>=60 (CALC)); POTASSIUM 3.7 mmol/l (3.5-5.1); SODIUM 143 mmol/l (137-146)
[2022-08-07 06:08] VITALS: BP 152/68
[2022-08-07 11:11] VITALS: BP 155/73
[2022-08-07] MEDS ORDERED: VIBRAMYCIN100 M2 PO (11:26)
== END 2022-08-07 15:58 | disposition home health service (06) | DRG 871 ==
LOC: ED 10:59 → ED-I 14:20 → ED 14:49 → ICU 14:50 → MS2 08-06 09:11
PROVIDERS: Family Medicine; ADMIT Internal Medicine; ATTEND Internal Medicine
PROC: 02HV33Z Insertion of Infusion Device into Superior Vena Cava, Percutaneous Approach (ICD-10-PCS; principal; 2022-08-02)
PROC: 0BH17EZ Insertion of Endotracheal Airway into Trachea, Via Natural or Artificial Opening (ICD-10-PCS; 2022-08-02)
PROC: 5A1945Z Respiratory Ventilation, 24-96 Consecutive Hours (ICD-10-PCS; 2022-08-02)
PROC: 0T9B70Z Drainage of Bladder with Drainage Device, Via Natural or Artificial Opening (ICD-10-PCS; 2022-08-02)
DX: A41.9 Sepsis, unspecified organism (principal); I50.33 Acute on chronic diastolic (congestive) heart failure; J96.02 Acute respiratory failure with hypercapnia; J96.01 Acute respiratory failure with hypoxia; J18.9 Pneumonia, unspecified organism; J44.0 Chronic obstructive pulmonary disease with (acute) lower respiratory infection; I11.0 Hypertensive heart disease with heart failure; R65.20 Severe sepsis without septic shock; I95.9 Hypotension, unspecified; I25.10 Atherosclerotic heart disease of native coronary artery without angina pectoris; I48.0 Paroxysmal atrial fibrillation; I49.3 Ventricular premature depolarization; I73.9 Peripheral vascular disease, unspecified; G47.33 Obstructive sleep apnea (adult) (pediatric); Z79.01 Long term (current) use of anticoagulants; Z96.612 Presence of left artificial shoulder joint; Z88.0 Allergy status to penicillin; Z87.891 Personal history of nicotine dependence; Z85.46 Personal history of malignant neoplasm of prostate; Z79.02 Long term (current) use of antithrombotics/antiplatelets; Z95.1 Presence of aortocoronary bypass graft; Z20.822 Contact with and (suspected) exposure to COVID-19

== ENCOUNTER 2022-10-31 19:00 | Inpatient (IN) | payer OTHER, MEDICARE ==
[~2022-10-31] VITALS: Ht 170.2 cm; Wt 104.6 kg
[2022-10-31] VITALS (13 sets, daily range): BP systolic 90–123; BP diastolic 26–59
[~2022-10-31 19:00] MED LIST changes: +ELIQUIS5 MG PO; +FLECAINIDE50 MG PO; +LEVOTHYROXIN50 MCG PO; +SOLIFENACIN SUC10 MG PO; +VIBRAMYCIN100 M2 PO
[2022-10-31 19:46] LABS: BASO% 0.2 % (0-3); EOS% 0.2 % (0-8); HEMATOCRIT 43.4 % (39.0-50.0); IMMATURE GRANULOCYTES 0.3 % (0.0-5.0); LYMPH% 10.5 % (15-41); MEAN CELL VOLUME 93.1 fL CALC (80.0-100.0); MEAN CORPUSCULAR HGB CONC 32.3 g/dL CAL (32.0-36.0); MONO% 2.7 % (2-13); NEUT# 5.53 thou/uL (1.82-7.42); NEUT% 86.1 % (42-76); RED BLOOD COUNT 4.66 mill/uL (4.70-6.10); RED CELL DISTRI WIDTH 13.5 % (11.5-15.5)
[2022-10-31 19:56] LABS: ALBUMIN 4.2 g/dL (3.2-5.0); ALKALINE PHOSPHATASE 110 u/l (38-126); ANION GAP 12 (6-22 (CALC)); BILIRUBIN, TOTAL 0.5 mg/dL (0.2-1.3); BUN 20 mg/dL (8-23); BUN/CREATININE RATIO 17 (12-20 (CALC)); CARBON DIOXIDE 27 mmol/l (22-30); CHLORIDE 105 mmol/l (95-108); CREATININE 1.2 mg/dL (0.7-1.3); GFR FOR AFR.AMER. > 60 ML/MIN (>=60 (CALC)); GFR OTHER RACES 58 ML/MIN (>=60 (CALC)); POTASSIUM 3.4 mmol/l (3.5-5.1); SGOT/AST 27 u/l (19-48); SODIUM 141 mmol/l (137-146); TOTAL PROTEIN 7.1 g/dL (6.3-8.2)
[2022-10-31] MEDS ORDERED: BICALUTAMIDE50 MG PO (21:12)
[2022-10-31] MEDS ORDERED: METOPROLOL SUCC50 MG PO (21:13)
[2022-10-31] MEDS ORDERED: STOOL SOFTE1 PO (21:13)
[2022-10-31 21:22] LABS: URINE BILIRUBIN - DIPSTICK NEGATIVE (NEGATIVE); URINE BLOOD DIPSTICK NEGATIVE (NEGATIVE); URINE COLOR YELLOW; URINE GLUCOSE - DIPSTICK NEGATIVE (NEGATIVE); URINE KETONE NEGATIVE (NEGATIVE); URINE LEUK ESTERASE NEGATIVE (NEGATIVE); URINE PH 5.5 (4.5-8.0); URINE PROTEIN - DIPSTICK 100 mg/dL (NEG-TRACE); URINE SPECIFIC GRAVITY >=1.030; URINE UROBILINOGEN - DIPSTICK 0.2 E.U./dL (0.2)
[2022-10-31 21:24] LABS: URINE NITRITE - DIPSTICK NEGATIVE (Negative)
[2022-10-31 21:28] LABS: URINE RBC 0-2 RBC/hpf (0-5); URINE WBC 0-2 WBC/hpf (0-5)
[2022-11-01] VITALS (8 sets, daily range): BP systolic 87–101; BP diastolic 27–46
[2022-11-02 04:29] VITALS: BP 115/58
[2022-11-02 06:08] LABS: HEMATOCRIT 40.7 % (39.0-50.0); HEMOGLOBIN 12.8 g/dl (14.0-18.0); MEAN CELL VOLUME 94.4 fL CALC (80.0-100.0); MEAN CORPUSCULAR HGB 29.7 pG CALC (26.0-32.0); MEAN CORPUSCULAR HGB CONC 31.4 g/dL CAL (32.0-36.0); RED BLOOD COUNT 4.31 mill/uL (4.70-6.10); RED CELL DISTRI WIDTH 14.4 % (11.5-15.5)
[2022-11-02 06:09] LABS: ALBUMIN 3.7 g/dL (3.2-5.0); BILIRUBIN, TOTAL 0.5 mg/dL (0.2-1.3); CREATININE 1.5 mg/dL (0.7-1.3); MAGNESIUM 1.9 mg/dL (1.6-2.3); TOTAL PROTEIN 6.8 g/dL (6.3-8.2)
[2022-11-02 06:17] LABS: POTASSIUM 4.1 mmol/l (3.5-5.1)
[2022-11-02 06:33] VITALS: BP 126/51
[2022-11-02 10:55] VITALS: BP 116/44
[2022-11-02 14:40] VITALS: BP 129/62
[2022-11-02 18:46] VITALS: BP 121/57
[2022-11-02 23:45] VITALS: BP 123/91
[2022-11-03 03:43] VITALS: BP 132/55
[2022-11-03 05:33] LABS: BASO% 0.1 % (0-3); HEMATOCRIT 40.1 % (39.0-50.0); HEMOGLOBIN 13.2 g/dl (14.0-18.0); LYMPH% 12.8 % (15-41); MEAN CELL VOLUME 92.6 fL CALC (80.0-100.0); MEAN CORPUSCULAR HGB 30.5 pG CALC (26.0-32.0); MEAN CORPUSCULAR HGB CONC 32.9 g/dL CAL (32.0-36.0); MONO% 3.2 % (2-13); NEUT# 8.06 thou/uL (1.82-7.42); NEUT% 74.6 % (42-76); RED BLOOD COUNT 4.33 mill/uL (4.70-6.10); RED CELL DISTRI WIDTH 13.9 % (11.5-15.5)
[2022-11-03 06:01] LABS: ALBUMIN 3.3 g/dL (3.2-5.0); ALKALINE PHOSPHATASE 95 u/l (38-126); ANION GAP 12 (6-22 (CALC)); BILIRUBIN, TOTAL 0.4 mg/dL (0.2-1.3); BUN 29 mg/dL (8-23); BUN/CREATININE RATIO 31 (12-20 (CALC)); CARBON DIOXIDE 25 mmol/l (22-30); CHLORIDE 108 mmol/l (95-108); CREATININE 0.9 mg/dL (0.7-1.3); GFR FOR AFR.AMER. > 60 ML/MIN (>=60 (CALC)); GFR OTHER RACES > 60 ML/MIN (>=60 (CALC)); MAGNESIUM 2.1 mg/dL (1.6-2.3); POTASSIUM 4.1 mmol/l (3.5-5.1); SGOT/AST 18 u/l (19-48); SODIUM 142 mmol/l (137-146)
[2022-11-03 06:05] LABS: IMMATURE GRANULOCYTES 9.3 % (0.0-5.0)
[2022-11-03 06:55] VITALS: BP 140/63
[2022-11-03 10:34] VITALS: BP 108/47
[2022-11-03] MEDS ORDERED: PREDNISONE10 MG PO (12:20)
[2022-11-03 18:09] VITALS: BP 103/51
== END 2022-11-03 13:29 | disposition home or self-care (01) | DRG 193 ==
LOC: ED 19:00 → ED-I 22:03 → ED 22:10 → MS2 22:11
PROVIDERS: Family Medicine; Nurse Practitioner Family; ADMIT Internal Medicine; ATTEND Internal Medicine
DX: J12.2 Parainfluenza virus pneumonia (principal); G93.41 Metabolic encephalopathy; J96.02 Acute respiratory failure with hypercapnia; J96.01 Acute respiratory failure with hypoxia; J44.0 Chronic obstructive pulmonary disease with (acute) lower respiratory infection; I50.9 Heart failure, unspecified; I48.0 Paroxysmal atrial fibrillation; I73.9 Peripheral vascular disease, unspecified; E11.9 Type 2 diabetes mellitus without complications; G47.33 Obstructive sleep apnea (adult) (pediatric); I25.10 Atherosclerotic heart disease of native coronary artery without angina pectoris; Z95.1 Presence of aortocoronary bypass graft; Z95.5 Presence of coronary angioplasty implant and graft; Z95.820 Peripheral vascular angioplasty status with implants and grafts; Z85.46 Personal history of malignant neoplasm of prostate; Z99.81 Dependence on supplemental oxygen; Z87.891 Personal history of nicotine dependence; Z96.82 Presence of neurostimulator; Z20.822 Contact with and (suspected) exposure to COVID-19
CPT/HCPCS: J1650

== ENCOUNTER 2022-11-27 13:00 | Emergency (ER) | payer MEDICARE, OTHER ==
[~2022-11-27] VITALS: Ht 170.2 cm; Wt 102.9 kg
[2022-11-27] VITALS (9 sets, daily range): BP systolic 97–162; BP diastolic 58–79
[~2022-11-27 13:00] MED LIST changes: +BICALUTAMIDE50 MG PO; +METOPROLOL SUCC50 MG PO; +PREDNISONE10 MG PO; +STOOL SOFTE1 PO
[2022-11-27 15:13] LABS: BASO% 0.4 % (0-3); EOS% 2.3 % (0-8); HEMOGLOBIN 14.7 g/dl (14.0-18.0); IMMATURE GRANULOCYTES 0.4 % (0.0-5.0); LYMPH% 32.4 % (15-41); MEAN CELL VOLUME 95.7 fL CALC (80.0-100.0); MEAN CORPUSCULAR HGB 30.3 pG CALC (26.0-32.0); MEAN CORPUSCULAR HGB CONC 31.7 g/dL CAL (32.0-36.0); MONO% 6.8 % (2-13); NEUT# 4.01 thou/uL (1.82-7.42); NEUT% 57.7 % (42-76); RED BLOOD COUNT 4.85 mill/uL (4.70-6.10); RED CELL DISTRI WIDTH 14.6 % (11.5-15.5)
[2022-11-27 15:20] LABS: URINE BILIRUBIN - DIPSTICK NEGATIVE (NEGATIVE); URINE BLOOD DIPSTICK NEGATIVE (NEGATIVE); URINE COLOR YELLOW; URINE GLUCOSE - DIPSTICK NEGATIVE (NEGATIVE); URINE KETONE NEGATIVE (NEGATIVE); URINE LEUK ESTERASE NEGATIVE (NEGATIVE); URINE PROTEIN - DIPSTICK NEGATIVE (NEG-TRACE); URINE UROBILINOGEN - DIPSTICK 0.2 E.U./dL (0.2)
[2022-11-27 15:21] LABS: URINE NITRITE - DIPSTICK NEGATIVE (Negative)
[2022-11-27 15:21] LABS: HEMATOCRIT 46.4 % (39.0-50.0)
[2022-11-27 15:38] LABS: ALKALINE PHOSPHATASE 104 u/l (38-126); ANION GAP 13 (6-22 (CALC)); BUN 15 mg/dL (8-23); BUN/CREATININE RATIO 13 (12-20 (CALC)); CARBON DIOXIDE 30 mmol/l (22-30); CHLORIDE 101 mmol/l (95-108); CREATININE 1.1 mg/dL (0.7-1.3); GFR FOR AFR.AMER. > 60 ML/MIN (>=60 (CALC)); GFR OTHER RACES > 60 ML/MIN (>=60 (CALC)); LIPASE 46 u/l (23-300); POTASSIUM 3.9 mmol/l (3.5-5.1); SGOT/AST 35 u/l (19-48); SODIUM 140 mmol/l (137-146)
[2022-11-27 15:40] LABS: ALBUMIN 4.1 g/dL (3.2-5.0); BILIRUBIN, TOTAL 0.7 mg/dL (0.2-1.3); TOTAL PROTEIN 7.3 g/dL (6.3-8.2)
[2022-11-27] MEDS ORDERED: FLEXERIL5 M1 PO (16:54)
== END 2022-11-27 17:59 | disposition home or self-care (01) ==
LOC: ED 13:00
PROVIDERS: Family Medicine
DX: M54.50 Low back pain, unspecified (principal); E11.9 Type 2 diabetes mellitus without complications; I25.10 Atherosclerotic heart disease of native coronary artery without angina pectoris; Z95.1 Presence of aortocoronary bypass graft; Z95.5 Presence of coronary angioplasty implant and graft; Z95.820 Peripheral vascular angioplasty status with implants and grafts; Z96.82 Presence of neurostimulator
CPT/HCPCS: Q9967

== ENCOUNTER 2022-12-01 07:19 | Emergency (ER) | payer MEDICARE, OTHER ==
[~2022-12-01] VITALS: Ht 170.2 cm; Wt 259.0 kg
[~2022-12-01 07:19] MED LIST changes: +FLEXERIL5 M1 PO
[2022-12-01 08:35] VITALS: BP 143/101
== END 2022-12-01 08:45 | disposition home or self-care (01) ==
LOC: ED 07:19
PROC: 0VQ5XZZ Repair Scrotum, External Approach (ICD-10-PCS; principal; 2022-12-01)
DX: N50.1 Vascular disorders of male genital organs (principal); E11.9 Type 2 diabetes mellitus without complications; I25.10 Atherosclerotic heart disease of native coronary artery without angina pectoris; I65.29 Occlusion and stenosis of unspecified carotid artery; Z95.1 Presence of aortocoronary bypass graft; Z95.5 Presence of coronary angioplasty implant and graft; Z95.820 Peripheral vascular angioplasty status with implants and grafts; Z96.82 Presence of neurostimulator; Z79.01 Long term (current) use of anticoagulants

== ENCOUNTER 2022-12-03 22:33 | Emergency (ER) | payer MEDICARE, OTHER ==
[~2022-12-03] VITALS: Ht 170.2 cm; Wt 98.0 kg
[2022-12-03 23:43] VITALS: BP 151/61
[2022-12-03 23:46] VITALS: BP 136/61
[2022-12-04 00:01] VITALS: BP 112/57
[2022-12-04 00:16] VITALS: BP 109/92
[2022-12-04 01:31] VITALS: BP 158/87
[2022-12-04] MEDS ORDERED: PERCOCET 5/325M1 TAB PO (02:03)
[2022-12-04 02:16] VITALS: BP 168/87
== END 2022-12-04 02:32 | disposition home or self-care (01) ==
LOC: ED 22:33
DX: M54.16 Radiculopathy, lumbar region (principal); E11.9 Type 2 diabetes mellitus without complications; I25.10 Atherosclerotic heart disease of native coronary artery without angina pectoris; Z95.1 Presence of aortocoronary bypass graft; Z95.5 Presence of coronary angioplasty implant and graft; Z95.820 Peripheral vascular angioplasty status with implants and grafts; Z96.82 Presence of neurostimulator

== ENCOUNTER 2023-01-15 16:36 | Emergency (ER) | payer MEDICARE, OTHER ==
[2023-01-15] VITALS (14 sets, daily range): BP systolic 102–149; BP diastolic 52–68
[~2023-01-15] VITALS: Ht 170.2 cm; Wt 122.4 kg
[~2023-01-15 16:36] MED LIST changes: +PERCOCET 5/325M1 TAB PO
[2023-01-15 18:50] LABS: POTASSIUM 4.1 mmol/l (3.5-5.1)
== END 2023-01-15 20:01 | disposition home or self-care (01) ==
LOC: ED 16:36
PROVIDERS: Family Medicine
DX: I48.0 Paroxysmal atrial fibrillation (principal); E11.9 Type 2 diabetes mellitus without complications; I25.10 Atherosclerotic heart disease of native coronary artery without angina pectoris; I65.29 Occlusion and stenosis of unspecified carotid artery; Z95.1 Presence of aortocoronary bypass graft; Z95.5 Presence of coronary angioplasty implant and graft; Z95.820 Peripheral vascular angioplasty status with implants and grafts; Z96.82 Presence of neurostimulator

== ENCOUNTER 2023-01-20 11:25 | Emergency (ER) | payer MEDICARE, OTHER ==
[~2023-01-20] VITALS: Ht 170.2 cm; Wt 102.5 kg
[2023-01-20 11:30] VITALS: BP 117/48
[2023-01-20 12:01] VITALS: BP 133/61
[2023-01-20 12:31] VITALS: BP 120/50
[2023-01-20 13:05] LABS: URINE BILIRUBIN - DIPSTICK NEGATIVE (NEGATIVE); URINE BLOOD DIPSTICK NEGATIVE (NEGATIVE); URINE COLOR YELLOW; URINE GLUCOSE - DIPSTICK NEGATIVE (NEGATIVE); URINE KETONE NEGATIVE (NEGATIVE); URINE LEUK ESTERASE NEGATIVE (NEGATIVE); URINE PROTEIN - DIPSTICK NEGATIVE (NEG-TRACE); URINE SPECIFIC GRAVITY <=1.005; URINE UROBILINOGEN - DIPSTICK 0.2 E.U./dL (0.2)
[2023-01-20 13:23] LABS: URINE NITRITE - DIPSTICK NEGATIVE (Negative)
[2023-01-20 13:46] LABS: BASO% 0.4 % (0-3); EOS% 3.3 % (0-8); HEMATOCRIT 42.4 % (39.0-50.0); HEMOGLOBIN 13.1 g/dl (14.0-18.0); IMMATURE GRANULOCYTES 0.1 % (0.0-5.0); LYMPH% 31.4 % (15-41); MEAN CELL VOLUME 98.1 fL CALC (80.0-100.0); MEAN CORPUSCULAR HGB 30.3 pG CALC (26.0-32.0); MEAN CORPUSCULAR HGB CONC 30.9 g/dL CAL (32.0-36.0); MONO% 9.3 % (2-13); NEUT# 3.83 thou/uL (1.82-7.42); NEUT% 55.5 % (42-76); RED BLOOD COUNT 4.32 mill/uL (4.70-6.10); RED CELL DISTRI WIDTH 14.1 % (11.5-15.5)
[2023-01-20 13:54] LABS: ALBUMIN 4.2 g/dL (3.2-5.0); ALKALINE PHOSPHATASE 184 u/l (38-126); ANION GAP 13 (6-22 (CALC)); BILIRUBIN, TOTAL 0.6 mg/dL (0.2-1.3); BUN 16 mg/dL (8-23); BUN/CREATININE RATIO 16 (12-20 (CALC)); CARBON DIOXIDE 26 mmol/l (22-30); CHLORIDE 106 mmol/l (95-108); GFR FOR AFR.AMER. > 60 ML/MIN (>=60 (CALC)); GFR OTHER RACES > 60 ML/MIN (>=60 (CALC)); POTASSIUM 3.9 mmol/l (3.5-5.1); SGOT/AST 41 u/l (19-48); SODIUM 141 mmol/l (137-146); TOTAL PROTEIN 7.2 g/dL (6.3-8.2)
[2023-01-20 15:39] VITALS: BP 120/50
== END 2023-01-20 15:43 | disposition home or self-care (01) ==
LOC: ED 11:25 → ED-I 14:46 → ED 15:43
PROVIDERS: Family Medicine
DX: S09.90XA Unspecified injury of head, initial encounter (principal); M62.81 Muscle weakness (generalized); E11.9 Type 2 diabetes mellitus without complications; I25.10 Atherosclerotic heart disease of native coronary artery without angina pectoris; I48.91 Unspecified atrial fibrillation; J44.9 Chronic obstructive pulmonary disease, unspecified; W19.XXXA Unspecified fall, initial encounter; Z91.81 History of falling; Z95.1 Presence of aortocoronary bypass graft; Z95.5 Presence of coronary angioplasty implant and graft; Z95.820 Peripheral vascular angioplasty status with implants and grafts; Z96.82 Presence of neurostimulator; Z79.01 Long term (current) use of anticoagulants; Z79.02 Long term (current) use of antithrombotics/antiplatelets

== ENCOUNTER 2023-08-24 19:51 | Emergency (ER) | payer OTHER, MEDICARE ==
[2023-08-24] VITALS (10 sets, daily range): BP systolic 102–146; BP diastolic 48–114
[~2023-08-24] VITALS: Ht 170.2 cm; Wt 100.0 kg
[~2023-08-24 19:51] MED LIST changes: +DOXYCYC MONO100 M3 PO
[2023-08-24] MEDS ORDERED: CALCIUM500 M5 PO (20:16)
[2023-08-24] MEDS ORDERED: VITAMIN D325 MCG (20:18)
[2023-08-24] MEDS ORDERED: FOLIC ACID1 MG PO (20:18)
[2023-08-24] MEDS ORDERED: ELIQUIS5 MG PO (20:18)
[2023-08-24] MEDS ORDERED: AMBIEN5 MG PO (20:19)
[2023-08-24 21:18] LABS: BASO% 0.8 % (0-3); EOS% 1.7 % (0-8); IMMATURE GRANULOCYTES 1.1 % (0.0-5.0); LYMPH% 13.5 % (15-41); MEAN CORPUSCULAR HGB 31.7 pG CALC (26.0-32.0); MEAN CORPUSCULAR HGB CONC 30.5 g/dL CAL (32.0-36.0); MONO% 9.4 % (2-13); NEUT# 2.67 thou/uL (1.82-7.42); NEUT% 73.5 % (42-76); RED BLOOD COUNT 2.4 mill/uL (4.70-6.10); RED CELL DISTRI WIDTH 20.8 % (11.5-15.5)
[2023-08-24 21:19] LABS: HEMATOCRIT 24.9 % (39.0-50.0); HEMOGLOBIN 7.6 g/dl (14.0-18.0); MEAN CELL VOLUME 103.8 fL CALC (80.0-100.0)
[2023-08-24 21:59] LABS: ALBUMIN 3.6 g/dL (3.2-5.0); ALKALINE PHOSPHATASE 160 u/l (38-126); ANION GAP 12 (6-22 (CALC)); BILIRUBIN, TOTAL 0.6 mg/dL (0.2-1.3); BUN 15 mg/dL (8-23); BUN/CREATININE RATIO 13 (12-20 (CALC)); CHLORIDE 112 mmol/l (95-108); CREATININE 1.2 mg/dL (0.7-1.3); GFR FOR AFR.AMER. > 60 ML/MIN (>=60 (CALC)); GFR OTHER RACES 58 ML/MIN (>=60 (CALC)); POTASSIUM 3.8 mmol/l (3.5-5.1); SGOT/AST 24 u/l (19-48); SODIUM 140 mmol/l (137-146); TOTAL PROTEIN 6.1 g/dL (6.3-8.2)
[2023-08-24 22:04] LABS: CARBON DIOXIDE 20 mmol/l (22-30)
[2023-08-25 00:28] VITALS: BP 146/114
== END 2023-08-25 00:41 | disposition home or self-care (01) | DRG 812 ==
LOC: ED 19:51
PROVIDERS: Family Medicine
DX: D63.0 Anemia in neoplastic disease (principal); C79.89 Secondary malignant neoplasm of other specified sites; C61 Malignant neoplasm of prostate